=== PATIENT | male | born 1970 | race Caucasian/White ===

== ENCOUNTER 2017-06-25 05:14 | Emergency (ER) | payer OTHER ==
[2017-06-25] MEDS ORDERED: Ketorolac Tromethamine 30 MG/ML VIAL ONE (06:16)
[2017-06-25] MEDS ORDERED: Ondansetron HCl/PF 4 MG/2 ML Vial ONE (06:16)
[2017-06-25 06:38] LABS: #Basophils 0.1 thou/uL (0.0-0.2); #Eosinphils 0.2 thou/uL (0.0-0.7); #Lymphocytes 2.3 thou/uL (1.20-3.40); #Monocytes 0.5 thou/uL (0.11-0.59); #Neutrophils 5.5 thou/uL (1.40-6.50); %Basophils 0.8 % (0.0-1.0); %Eosinophils 2.5 % (0.0-10.0); %Lymphocytes 26.6 % (21.0-51.0); %Monocytes 6.2 % (0.0-10.0); Hematocrit 46.1 % (42.0-52.0); Mean Platelet Volume 7.6 fL (7.4-10.4); Red Blood Cell (RBC) Count 4.59 mill/uL (4.70-6.10); White Blood Cell (WBC) Count 8.7 thou/uL (4.8-10.8)
[2017-06-25 06:59] LABS: Anion Gap 14 mmol/L (10-20); BUN (Urea Nitrogen) 16 mg/dL (8.9-20.6); Calc. Creatinine Clearance 0 mL/min (70-130); Calcium 10.6 mg/dL (7.8-10.44); Carbon Dioxide 26 mmol/L (22-29); Chloride 102 mmol/L (98-107); Estimated GFR-MDRD 64
[2017-06-25 07:21] LABS: Bilirubin Negative (Negative); Blood, Urine Moderate (Negative); Glucose, Urine (Dipstick) Negative (Negative); Ketone, Urine Negative (Negative); Nitrite Negative (Negative); Protein, Urine (Dipstick) Negative (Neg-Trace)
[2017-06-25 07:23] LABS: Bacteria/HPF None Seen HPF (None Seen); RBC/HPF 0-3 HPF (0-3); Squamous Epithelial 0-3 HPF (0-3)
[2017-06-25 07:45] LABS: Hyaline Casts/LPF 0-3 HYALINE CAST LPF (0-3 Hyaline)
--- NOTE | 2017-06-25 08:14 | CT ---
CT OF THE ABDOMEN AND PELVIS WITHOUT CONTRAST: COMPARISON: None. HISTORY: Lower abdominal pain and dysuria. Right flank pain. The patient had similar symptoms approximately 15 years ago when passing a kidney stone. TECHNIQUE: Multiple contiguous axial images were obtained in a CT of the abdomen and pelvis without contrast. Coronal reformats were performed. FINDINGS: There is a tiny 1-2 mm calcification of the right ureterovesical junction causing mild right-side hy dronephrosis. No other calcifications are seen in either kidney or along the course of the left ure ter. There is mild diffuse fatty infiltration of the liver. The gallbladder, adrenal glands, spleen, and pancreas are unremarkable, although evaluation is limited on this noncontrast examination. No free air, free fluid, or stranding changes are seen in the abdomen or pelvis. The large and small bowel are unremarkable. The appendix is normal. No abdominal or pelvic lymphad enopathy are seen. The osseous structures, visualized inferior thorax, and abdominal wall soft tissues are unremarkable . IMPRESSION: 1. Right distal ureteral calcification with mild right hydronephrosis. 2. Fatty liver. POS: [facility]
--- NOTE | 2017-06-25 08:30 | ULT ---
PRELIMINARY REPORT/[facility]/EMERGENCY AFTER-HOURS PROCEDURE: Addendum created by Ellis Mccormick MD on 06/25/2017 6:21 AM Central Time ([place]) Urinary bladder is not distended. Initial Report created on 06/25/2017 6:21 AM Central Time ([place]) EXAM: US Retroperitoneal Complete EXAM DATE/TIME: Exam ordered 06/25/2017 5:51 AM CLINICAL HISTORY: 47 years old, male; Pain; Abdominal pain; Flank; Right; Patient HX: Difficulty urinating TECHNIQUE: Real-time ultrasound of the retroperitoneum (complete) with image documentation. COMPARISON: No relevant prior studies available. FINDINGS: Right kidney: The RIGHT kidney measures 11.4 x 5.0 x 4.9 cm. There are bilateral nonobstructing hector l pelvic calculi measuring up to 7 mm. No hydronephrosis on either side. Left kidney: The LEFT kidney measures 10.8 x 4.7 x 4.7 cm. See above Other findings: The prostate gland is mildly prominent. IMPRESSION: Bilateral nonobstructing renal pelvic calculi without hydronephrosis another site. Thank you for allowing us to participate in the care of your patient. Dictated and Authenticated by: Ellis Mccormick MD 06/25/2017 6:21 AM Central Time ([place]\ [place]) FINAL REPORT EXAM: RENAL ULTRASOUND: HISTORY: Right flank pain, unable to empty bladder. History of renal calculi. COMPARISON: None. TECHNIQUE: Sagittal and transverse imaging of the kidneys performed. FINDINGS: This report is in agreement with the preliminary report by [facility]. Bilaterally, there is no evidence o f hydronephrosis. Bilateral nonobstructing intrarenal calculi are noted. POS: [facility]
== END 2017-06-25 07:40 | disposition home or self-care (01) ==
LOC: ERS 05:14
DX: N13.2 Hydronephrosis with renal and ureteral calculous obstruction (principal); F43.10 Post-traumatic stress disorder, unspecified; F17.210 Nicotine dependence, cigarettes, uncomplicated; Z79.899 Other long term (current) drug therapy
CPT/HCPCS: 74176; 76770; 80048; 81003; 81015; 85025; 96361; 96374; 96375; 99406; J1885; J2405